=== PATIENT | male | born 1990 | race Caucasian/White ===

== ENCOUNTER 2020-02-09 09:10 | Emergency (ER) | payer MEDICAID, SELFPAY ==
[2020-02-09 09:12] VITALS: BP 143/92; PULSE 97; RESP 16; TEMP 36.3; O2SAT 98; BMI 33.5
--- NOTE | 2020-02-09 09:34 | ED.DCSUM_ITS ---
- ER Visit Summary Date of Service: 02/09/20 Chief Complaint: [Request for COVID-19 testing] History of Present Illness: The patient is a 29 M [presents to the emergency department stating that his work asked him to come get tested for COVID-19. Patient states that 2 people at work have been diagnosed with COVID-19. Patient was last in contact with one of the individual 6 days ago. Patient does have a mild cough. Cough is nonproductive. Patient is a smoker. He denies any fever. He denies loss of taste or smell. He denies sore throat or body aches.] He has no medical history. Physical Examination: [HEENT-PERRLA, EOMI. Cranial nerves II through XII grossly intact. TMs clear. Mucous membranes moist. No adenopathy. Cardiovascular-regular rate and rhythm without murmur or ectopy Lungs-clear to auscultation, chest wall stable without crepitus or subcu emphysema Abdomen-normoactive bowel sounds, soft, nontender, no rebound or rigidity, no peritoneal signs. Extremities-intact ?4, normal range of motion, normal pulses, atraumatic] Test Results: [COVID-19 test ordered and will be a send out and pending.] Emergency Department Course and Treatment: [] Treatment Plan: [Patient advised to self quarantine.] Disposition: [Discharged home in stable condition] Impression: [Cough COVID-19 testing] This note was generated with [employer] dictation software. It may contain incorrect words, spelling, and punctuation that were not noted in review of the chart prior to signing ED Disposition - Plan for ED Patient: Referrals: NOT,DEFINED [Primary Care Provider] -
--- NOTE | 2020-02-09 09:35 | ED.DEP ---
ED Disposition - Plan for ED Patient: Instructions: ED URI Viral Referrals: NOT,DEFINED [Primary Care Provider] - Deepti Pop MD [STAFF PHYSICIAN] - 5-7 Days
== END 2020-02-09 09:54 | disposition home or self-care (01) ==
PROVIDERS: Emergency Provider Emergency Medicine
DX: R05 Cough (principal); F17.200 Nicotine dependence, unspecified, uncomplicated; Z20.828 Contact with and (suspected) exposure to other viral communicable diseases
CPT/HCPCS: 87635; 99281; 99283; U0003